=== PATIENT | male | born 1965 | race Native Hawaiian/Other Pacific Islander ===

== ENCOUNTER 2019-04-12 02:38 | Observation (INO) | payer BC ==
[~2019-04-12] VITALS: Ht 188 cm; Wt 104.6 kg
[2019-04-12 02:45] VITALS: BP 157/100; TEMP 99.9
[2019-04-12 03:18] LABS: PLATELET COUNT 270 K/uL (142-355)
[2019-04-12 04:50] VITALS: BP 167/84; TEMP 98.8; Ht 188 cm; Wt 104.6 kg
[2019-04-12 08:00] VITALS: BP 132/70; TEMP 98.3
[2019-04-12] MEDS ORDERED: ADDERALL20 MG PO (10:41)
[2019-04-12] MEDS ORDERED: CARBAMAZEPIN200 M2 PO (10:42)
[2019-04-12] MEDS ORDERED: DULO60CA2 PO (10:43)
[2019-04-12 12:00] VITALS: BP 121/79; TEMP 98.2
[2019-04-12 12:27] LABS: PLATELET COUNT 228 K/uL (142-355)
[2019-04-12] MEDS ORDERED: 904272561 PO (13:17)
== END 2019-04-12 15:20 | disposition home or self-care (01) ==
LOC: ED 02:38 → MED/SURG 03:55
PROVIDERS: Emergency Medicine; ADMIT Internal Medicine
DX: L03.115 Cellulitis of right lower limb (principal); M54.5 Low back pain; J44.9 Chronic obstructive pulmonary disease, unspecified; D72.828 Other elevated white blood cell count; F90.8 Attention-deficit hyperactivity disorder, other type; M46.1 Sacroiliitis, not elsewhere classified
CPT/HCPCS: 80053; 83605; 85007; 85027; 87040; 96372; 99220; 99283; G0378; J0696; J1885

== ENCOUNTER 2021-10-29 14:14 | Emergency (ER) | payer BC ==
[~2021-10-29] VITALS: Ht 188 cm; Wt 92.5 kg
[2021-10-29 14:14] VITALS: TEMP 98.8
[~2021-10-29 14:14] MED LIST: 904272561 PO; ADDERALL20 MG PO; CARBAMAZEPIN200 M2 PO; DULO60CA2 PO
[2021-10-29 14:37] LABS: PLATELET COUNT 233 K/uL (142-355)
[2021-10-29 14:41] LABS: POTASSIUM 3.8 mmol/L (3.6-5.2)
[2021-10-29 15:45] VITALS: BP 146/80
== END 2021-10-29 18:03 | disposition still patient (30) ==
LOC: ED 14:14
PROVIDERS: Hospitalist
DX: F25.8 Other schizoaffective disorders (principal); F22 Delusional disorders; R44.1 Visual hallucinations; R44.0 Auditory hallucinations; F15.10 Other stimulant abuse, uncomplicated; Z11.52 Encounter for screening for COVID-19; Z04.6 Encounter for general psychiatric examination, requested by authority
CPT/HCPCS: 80053; 80143; 80156; 80179; 80307; 80320; 81002; 85027; 87635; 93005; 99285; U0003